=== PATIENT | male | born 1975 | race Caucasian/White ===

== ENCOUNTER 2016-07-30 01:17 | Emergency (ER) | payer OTHER ==
[~2016-07-30 01:17] MED LIST: CALC500T9 PO; IBUP800T28 PO; MELA1TAB11 PO; OMPR20CCR PO
[2016-07-30] MEDS ORDERED: 0.9% Sodium Chloride 1,000 ML IV ONE (01:26)
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
[2016-07-30 01:37] LABS: BASOPHILS % (AUTO) 0.4 % (0-3); MONOCYTES % (AUTO) 6.7 % (4-12); Mean Corpuscular Volume 81.6 fL (81-100); NEUTROPHILS % (AUTO) 70.9 % (40-74); Platelet Count 365 bil/L (150-400)
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
[2016-07-30 04:49] VITALS: BP 142/84; PULSE 84; RESP 16; O2SAT 97
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
== END 2016-07-30 04:30 | disposition home or self-care (01) ==
LOC: SED 01:17
DX: S00.83XA Contusion of other part of head, initial encounter (principal); M54.2 Cervicalgia; M54.5 Low back pain; M54.6 Pain in thoracic spine; L53.8 Other specified erythematous conditions; V43.52XA Car driver injured in collision with other type car in traffic accident, initial encounter; Y93.89 Activity, other specified; Y92.410 Unspecified street and highway as the place of occurrence of the external cause; Y99.8 Other external cause status; I10 Essential (primary) hypertension; F17.200 Nicotine dependence, unspecified, uncomplicated; Z91.041 Radiographic dye allergy status
CPT/HCPCS: 36415; 70450; 71010; 71250; 72125; 74176; 80053; 83735; 85025; 96361; 96374; 99285; G0480; J1885; J7030